=== PATIENT | male | born 1965 | race Caucasian/White ===

== ENCOUNTER 2016-12-23 23:50 | Emergency (ER) | payer OTHER ==
[~2016-12-23 23:50] MED LIST: HYDROCHLOROT12.5 MG PO; LIPITOR40 PO
[2016-12-24 00:28] LABS: BASOPHILS 0.7 %; BASOPHILS ABSOLUTE 0.05 10/3/uL (0.0-0.16); EOSINOPHILS 3.1 %; EOSINOPHILS ABSOLUTE 0.21 10/3/uL (0.0-0.53); ER CBC TAT 0 Hrs 05 Mins; HEMATOCRIT 40.8 % (40.0-51.0); HEMOGLOBIN 14.6 g/dL (13.6-17.8); LYMPHOCYTES ABSOLUTE 2.89 10/3/uL (0.67-4.30); MANUAL DIFF NO %; MEAN CORPUS HGB CONC 35.8 g/dL (32.0-36.0); MEAN CORPUSCULAR HEMOGLOB 31.1 pg (26.0-34.0); MONOCYTES 6.4 %; MONOCYTES ABSOLUTE 0.43 10/3/uL (0.21-1.20); NEUTROPHILS 46.8 %; NEUTROPHILS ABSOLUTE 3.14 10/3/uL (2.02-8.40); PLATELET COUNT 212 10/3/uL (150-400); RBC DISTRIBUTION WIDTH 12.5 % (12.0-16.0); RED CELL COUNT 4.69 10/6/uL (4.7-6.1); WHITE BLOOD CELLS 6.7 10/3/uL (4.5-10.5)
[2016-12-24 00:34] LABS: PARTIAL THROMBO TIME 25.1 SEC (22.5-37.2)
[2016-12-24 00:57] LABS: ALBUMIN 3.7 G/DL (3.5-5.0); CALCIUM, SERUM 8.7 MG/DL (8.5-10.4); CHLORIDE, SERUM 109 MMOL/L (96-112); CO2 (CARBON DIOXIDE) 26 MMOL/L (24-34); CREATININE 0.76 MG/DL (0.70-1.30); GFR AFRICAN AMERICAN 122 ML/MIN (>=60); GFR NON AFRICAN AMERICAN 105 ML/MIN (>=60); SGPT(ALT) 37 U/L (5-65); SODIUM, SERUM 144 MMOL/L (135-148); TOTAL BILIRUBIN 0.4 MG/DL (0-1.2); TOTAL PROTEIN 7.2 G/DL (6.0-8.5); TROPONIN I <0.02 NG/ML (<0.05)
[2016-12-24 00:59] LABS: ALKALINE PHOSPHATASE 57 U/L (45-117); BUN (BLOOD UREA NITROGEN) 9 MG/DL (6-23); CHEST PAIN PROFILE TAT 0 Hrs 34 Mins; DIRECT BILIRUBIN < 0.1 MG/DL (0.0-0.4); GLUCOSE, SERUM 92 MG/DL (60-99); INDIRECT BILIRUBIN(NOT ORDER) 0.3 MG/DL (0.1-0.9); SGOT(AST) 29 U/L (5-40)
[2017-01-03] MEDS ORDERED: ACET500CAP PO (15:47)
== END 2016-12-24 01:48 | disposition home or self-care (01) ==
LOC: ER 23:50
PROVIDERS: Specialist
DX: K80.20 Calculus of gallbladder without cholecystitis without obstruction (principal); I10 Essential (primary) hypertension; F17.200 Nicotine dependence, unspecified, uncomplicated; Z79.899 Other long term (current) drug therapy
CPT/HCPCS: 71010; 74176; 80048; 80076; 83690; 83735; 84484; 85025; 85610; 85730; 93005; 96374; 96375; 99284; J1885; J2405

== ENCOUNTER 2017-01-09 10:12 | Day surgery (SDC) | payer OTHER ==
[2017-01-07 11:40] LABS: BASOPHILS 1.1 %; BASOPHILS ABSOLUTE 0.06 10/3/uL (0.0-0.16); EOSINOPHILS 2.9 %; EOSINOPHILS ABSOLUTE 0.16 10/3/uL (0.0-0.53); HEMATOCRIT 40.8 % (40.0-51.0); HEMOGLOBIN 13.9 g/dL (13.6-17.8); IMMATURE GRANULOCYTES 0.2 %; IMMATURE GRANULOCYTES ABSOLUTE 0.01 10/3/uL (0.0-0.11); LYMPHOCYTES 45.7 %; LYMPHOCYTES ABSOLUTE 2.56 10/3/uL (0.67-4.30); MEAN CORPUS HGB CONC 34.1 g/dL (32.0-36.0); MEAN CORPUSCULAR HEMOGLOB 30.3 pg (26.0-34.0); MEAN CORPUSCULAR VOLUME 89.1 fL (80-100); MEAN PLATELET VOLUME 10.7 fL (9.2-13.0); MONOCYTES 6.4 %; MONOCYTES ABSOLUTE 0.36 10/3/uL (0.21-1.20); NEUTROPHILS 43.7 %; NEUTROPHILS ABSOLUTE 2.45 10/3/uL (2.02-8.40); PLATELET COUNT 185 10/3/uL (150-400); RBC DISTRIBUTION WIDTH 12.8 % (12.0-16.0); RED CELL COUNT 4.58 10/6/uL (4.7-6.1); WHITE BLOOD CELLS 5.6 10/3/uL (4.5-10.5)
[2017-01-07 11:41] LABS: MANUAL DIFF NO %
[2017-01-07 11:56] LABS: A/G RATIO 1.2 (0.7-1.9); ALBUMIN 3.6 G/DL (3.5-5.0); ALKALINE PHOSPHATASE 63 U/L (45-117); BUN (BLOOD UREA NITROGEN) 13 MG/DL (6-23); CALCIUM, SERUM 8.6 MG/DL (8.5-10.4); CHLORIDE, SERUM 110 MMOL/L (96-112); CO2 (CARBON DIOXIDE) 27 MMOL/L (24-34); CREATININE 0.84 MG/DL (0.70-1.30); GFR AFRICAN AMERICAN 117 ML/MIN (>=60); GFR NON AFRICAN AMERICAN 101 ML/MIN (>=60); GLOBULIN 2.9 G/DL (2.5-4.1); GLUCOSE, SERUM 145 MG/DL (60-99); POTASSIUM, SERUM 4.2 MMOL/L (3.5-5.3); SGOT(AST) 27 U/L (5-40); SGPT(ALT) 37 U/L (5-65); SODIUM, SERUM 144 MMOL/L (135-148); TOTAL BILIRUBIN 0.4 MG/DL (0-1.2); TOTAL PROTEIN 6.5 G/DL (6.0-8.5)
--- NOTE | ~2017-01-09 | OP ---
Record Of Operation [facility] [address] [place]. [address] NAME: HENRY JOSEPH : 63 STATUS : [facility]#: [id number] AGE: 51 ADM/REG DATE : 01/09/17 MR#: [id number] REPORT SERV DATE: 01/10/17 DICTATED BY: MEGHAN DENT DATE: 01/09/17 REPORT STATUS : Draft TRANSCRIBED BY: MODL DATE: 01/09/17 DATE OF PROCEDURE: 01/09/2017 DICTATED BY: Dr. Chance Hogan. PREOPERATIVE DIAGNOSIS: Symptomatic cholelithiasis. POSTOPERATIVE DIAGNOSIS: Symptomatic cholelithiasis. PROCEDURE PERFORMED: Laparoscopic cholecystectomy. SURGEON: Meghan Dent M.D. RESIDENT SURGEON: Dr. Chance Hogan. COMPLICATIONS: None. SPECIMEN: Gallbladder. BLOOD LOSS: Minimal. IV FLUIDS: 900. PROCEDURE IN DETAIL: The patient is a 51-year-old male, who presented to Dr. Dent's clinic with a history of biliary colic symptoms. The patient was preop'd and consented and taken to the operating room and placed in supine position, underwent general anesthesia endotracheal intubation, was prepped and draped in standard sterile fashion. Supraumbilical para-midline incision was made in a vertical orientation, and Optiview trocar was used with camera to gain access into the abdomen. This was confirmed and insufflation was started. The abdomen was filled. Inspection of the abdominal contents revealed no abnormalities. Supraumbilical and two right-sided subcostal trocars were then placed under direct visualization. The lateralmost trocar was then used to grasp the dome of the gallbladder up over the liver. A combination of blunt dissection and electrocautery was used for ventral attachments down from the gallbladder and removed the peritoneum overlying the cystic artery and duct. A combination of [place] and hook cautery was used to obtain a critical view of the cystic duct and artery and clearly visualized with liver posteriorly. A clip transit operations supervisor was then used to place two clips proximally and one distally on both the artery and duct. These were transected thereafter. Hook electrocautery was then used to dissect the gallbladder off the liver bed. There was no bilious spillage and hemostasis was achieved. The gallbladder was then placed into an endobag and removed through the subxiphoid 10 mm port. At this time, additional visualization of the hepatic bed revealed no bilious staining or bleeding. The abdomen was suctioned dry. Insufflation was removed with Person tip sucker, and the skin was closed with 4-0 Monocryl. Steri-Strips and sterile dressings were applied. The patient was awoken from anesthesia and taken to PACU in stable condition. DICTATED BY: Chance Hogan M.D. Record Of Operation [address] [address] NAME: HENRY JOSEPH : 63 STATUS : [facility]#: [id number] AGE: 51 ADM/REG DATE : 01/09/17 MR#: [id number] REPORT SERV DATE: 01/10/17 DICTATED BY: MEGHAN DENT DATE: 01/09/17 REPORT STATUS : Draft TRANSCRIBED BY: JANE DATE: 01/09/17 TREMAYNE/JANE Meghan Dent M.D. / [id number] CC: Mamadou Stinson M.D.
[~2017-01-09 10:12] MED LIST changes: +ACET500CAP PO
== END 2017-01-09 16:07 | disposition home or self-care (01) ==
LOC: SDC 10:12
PROVIDERS: Specialist
PROC: 0FT44ZZ Resection of Gallbladder, Percutaneous Endoscopic Approach (ICD-10-PCS; principal; 2017-01-09 11:45)
DX: K80.10 Calculus of gallbladder with chronic cholecystitis without obstruction (principal); E78.00 Pure hypercholesterolemia, unspecified; I10 Essential (primary) hypertension; Z87.891 Personal history of nicotine dependence; Z98.890 Other specified postprocedural states
CPT/HCPCS: 80053; 82962; 85025; 88304; 93005; J0690; J1885; J2250; J2405; J2710; J3010; Q9967